=== PATIENT | female | born 1950 | race Caucasian/White ===

== ENCOUNTER 2019-09-18 09:41 | Day surgery (SDC) | payer MEDICARE, BC ==
[2019-09-15 15:15] LABS: BASOPHILS % (AUTO) 0.5 % (0-1); EOSINOPHILS # (AUTO) 0.1 X10'3 (0-0.9); EOSINOPHILS % (AUTO) 2.5 % (0-6); LYMPHOCYTES # (AUTO) 1.4 X10'3 (1.1-4.8); LYMPHOCYTES % (AUTO) 29.1 % (21-51); MEAN CORPUSCULAR HEMOGLOBIN 29.3 PG (27.0-31.0); MEAN CORPUSCULAR HGB CONC 33.8 g/dL (33.0-36.5); MEAN CORPUSCULAR VOLUME 86.7 FL (78-98); MEAN PLATELET VOLUME 9.4 FL (7.4-10.4); MONOCYTES # (AUTO) 0.4 X10'3 (0-0.9); MONOCYTES % (AUTO) 7.5 % (2-12); NEUTROPHILS % (AUTO) 60.4 % (42-75); PRE OP HEMATOCRIT 41.9 % (35.0-45.0); PRE OP HEMOGLOBIN 14.2 g/dL (12.0-16.0); PRE OP PLATELET COUNT 205 X10'3 (140-440); RED BLOOD COUNT 4.83 X10'6 (4.20-5.60); RED CELL DISTRIBUTION WIDTH 14.2 % (11.5-14.5)
[2019-09-15 15:26] LABS: PRE OP PROTIME 10.3 SECONDS (9.0-12.0)
[2019-09-15 15:30] LABS: ALBUMIN 4.3 G/DL (3.4-5.0); ALBUMIN/GLOBULIN RATIO 1.2 (1.1-1.5); ALKALINE PHOSPHATASE 72 IU/L (46-116); BLOOD UREA NITROGEN 12 MG/DL (7-18); BUN/CREATININE RATIO 14.8 (6.6-38.0); CALCIUM 9.5 MG/DL (8.5-10.1); CHLORIDE 104 MMOL/L (99-107); CREATININE 0.81 MG/DL (0.40-0.90); PRE OP ALT 34 U/L (30-65); PRE OP ANION GAP 11 (8-16); PRE OP AST 22 U/L (10-37); PRE OP BILIRUB, TOTAL 0.6 MG/DL (0.0-1.0); PRE OP GLUCOSE 82 MG/DL (70-104); PRE OP POTASSIUM 3.8 MMOL/L (3.4-5.1); PRE OP SODIUM 140 MMOL/L (135-145); TOTAL CARBON DIOXIDE 25.3 MMOL/L (24-32); TOTAL PROTEIN 7.8 G/DL (6.4-8.2); eGFR 70 ML/MIN
[2019-09-18] VITALS (7 sets, daily range): BP systolic 96–160; BP diastolic 60–95
[~2019-09-18] VITALS: Ht 160 cm; Wt 53.5 kg
[~2019-09-18 09:41] MED LIST: NO HOME MEDS; famotidine 10mg tablet PO ONE; ringers solution, lacted 1,000 ML IV SCH
[2019-09-18] MEDS ORDERED: cocaine 4% topical solution 4ml bottle ONE (12:44)
[2019-09-18] MEDS ORDERED: LIDOcaine 1% W/epiNEPHrine 1:100,000 20ml vial ONE ×2 (12:44→13:03)
[2019-09-18] MEDS ORDERED: mupirocin 2% ointment 22GM ONE (12:44)
[2019-09-18] MEDS ORDERED: oxymetazoline 15 ML nasal spray NS ONE (12:45)
[2019-09-18] MEDS ORDERED: sevoflurane 250ml liquid IH ONE (12:58)
[2019-09-18] MEDS ORDERED: fentaNYL/PF 50MCG/1 ML 2ML syringe ONE (13:05)
[2019-09-18] MEDS ORDERED: midazolam 2 mg/2 ml injection ONE (13:06)
[2019-09-18] MEDS ORDERED: cefTAZidime 1gm inj ONE (13:17)
[2019-09-18] MEDS ORDERED: ondansetron/PF 4mg/2ml inj ONE (13:29)
[2019-09-18] MEDS ORDERED: dexamethasone sod phosphate 4mg/ml inj. ONE (13:29)
[2019-09-18] MEDS ORDERED: 0.9 % SODIUM CHLORIDE 10 ML VIAL ONE ×2 (13:29)
[2019-09-18] MEDS ORDERED: propofol inj 20 ML IV ONE (13:30)
[2019-09-18] MEDS ORDERED: acetaminophen 1,000mg/100ml IV 100 ML IV ONE (14:14)
[2019-09-18] MEDS ORDERED: ringers solution, lacted 1,000 ML IV SCH (14:18)
[2019-09-18] MEDS ORDERED: proCHLORperazine 10 MG/2 ml inj IV PRN (14:20)
[2019-09-18] MEDS ORDERED: morphine 4 MG/ML inj SYRINge IV PRN ×2 (14:20)
[2019-09-18] MEDS ORDERED: labetalol 20mg/4ml (5mg/ml) syringe IV PRN (14:20)
[2019-09-18] MEDS ORDERED: meperidine/PF 25mg/ml syringe IV PRN ×3 (14:20)
[2019-09-18] MEDS ORDERED: hydrALAZINE 20mg/ml inj. IV PRN (14:20)
[2019-09-18] MEDS ORDERED: ondansetron/PF 4mg/2ml inj IV PRN (14:20)
[2019-09-18] MEDS ORDERED: morphine 10mg/ml inj. ONE (14:31)
--- NOTE | 2019-09-18 14:46 | NUR ---
Received from OR via [facility] , accompanied by Anesthesiologist KATHARINE and report given by Anesthesiolgist. PATIENT WITH 20G PIV IN RIGHT UE RUNNING LR AT 100. 2 COTTONOIDS PRESENT AND A 10L MASK. DENIES PAIN AT THIS TIME. Addendum: 09/18/19 at 1457 by Matias Gama RN, RN Amended: Links added.
[2019-09-18] MEDS ORDERED: mupirocin 2% ointment 22GM TP SCH (15:00)
--- NOTE | 2019-09-18 15:46 | NUR ---
ALL DC CRITERIA HAS BEEN MET. IV TAKEN OUT WITHOUT COMPLICATIONS. ALL INSTRUCTIONS COVERED AND ALL QUESTIONS ANSWERED. DRESSINGS CDI. OUT VIA WHEELCHAIR TO PERSONAL VEHICLE WHERE PATIENT WAS SECURED IN AND DRIVEN HOME BY FAMILY. SPOUSE PRESENT AND I EXPLAINED USAGE OF ALL MEDICATIONS THAT PATIENT IS GOING TO BE ON. EXPLAINED USE OF SYRINGE FOR IRRIGATION. IV OUT WITHOUT COMPLICATIONS. OUT VIA WHEELCHAIR TO PERSONAL VEHICLE. Addendum: 09/18/19 at 1625 by Matias Gama RN, RN Amended: Links added.
[2019-09-18] MEDS ORDERED: salt irrigation nasal spray 45 ML SPRAY NS SCH (17:00)
[2019-09-18] MEDS ORDERED: oxymetazoline 15 ML nasal spray NS SCH (20:00)
== END 2019-09-18 15:46 | disposition home or self-care (01) ==
LOC: PAS 09:41
PROVIDERS: ATTEND Otolaryngology
DX: J32.9 Chronic sinusitis, unspecified (principal); Z79.899 Other long term (current) drug therapy; Z79.01 Long term (current) use of anticoagulants; Z98.890 Other specified postprocedural states
CPT/HCPCS: 31254; 31256; 31259; 36415; 61782; 80053; 82948; 85025; 85576; 85610; 85730; 87070; 87075; 87077; 87102; 87185; 87186; 93005; A6402; J0131; J0713; J1100; J2250; J2270; J2405; J2704; J3010; J7040; J7120; A4618; A7000